=== PATIENT | female | born 1985 | race Caucasian/White ===

== ENCOUNTER → 2017-08-22 | Outpatient (CLI) | payer SELFPAY ==
[~2017-08-22] MED LIST: ACEASPCAF PO; ALBU90OI INH; AMOX500 PO; CEPH500 PO; CIPR500 PO; DIPH50 PO; HYDACE5 PO; HYDCOR1TC TOP; MUPI2TC TOP; Naprosyn500 MG PO; Norco 5-325 Ta1 EACH PO; ORTHO-CYCLEN; OSEL75CA PO; PHENA100 PO; PROZAC; Percocet 5-3251 EACH PO; Zofran Odt4 MG SL; Zofran4 MG PO
[2017-08-24 12:12] LABS: HPV Genotype 16 Not Detected (NOTDET); HPV Genotype 18 Not Detected (NOTDET)
[2017-08-28 12:12] LABS: HPV High Risk Other Not Detected (NOTDET)
== END ==
LOC: LAB 17:57
PROVIDERS: Nurse Practitioner Family
DX: Z12.4 Encounter for screening for malignant neoplasm of cervix (principal)
CPT/HCPCS: 87624; G0123

== ENCOUNTER 2023-03-08 13:03 | Emergency (ER) | payer OTHER ==
[~2023-03-08] VITALS: Ht 160 cm; Wt 54.4 kg
[2023-03-08 13:07] VITALS: BP 144/88
== END 2023-03-08 14:48 | disposition home or self-care (01) ==
LOC: ER 13:03
DX: S61.211A Laceration without foreign body of left index finger without damage to nail, initial encounter (principal); Z23 Encounter for immunization; W26.0XXA Contact with knife, initial encounter; Z88.5 Allergy status to narcotic agent; Z91.040 Latex allergy status; Z88.8 Allergy status to other drugs, medicaments and biological substances
CPT/HCPCS: 90471; 90714; 90715; 99282-25; A9270